=== PATIENT | male | born 1960 | race Hispanic/Latino ===

== ENCOUNTER → 2022-11-21 | Day surgery (SDC) | payer MEDICARE ==
[2022-11-18 10:33] LABS: BASOPHILS # (AUTO) 0.1 (0.0-0.1); BASOPHILS % 0.6 % (0.0-1.0); EOSINOPHILS # (AUTO) 0.3 (0.0-0.4); EOSINOPHILS % 3.9 % (0.0-6.0); HEMATOCRIT 41.9 % (38.2-49.6); HEMOGLOBIN 14.2 g/dL (14.0-18.0); LYMPHOCYTES # (AUTO) 1.9 (1.0-3.2); MEAN CORPUSCULAR HEMOGLOBIN 28.7 pg (28-32); MEAN CORPUSCULAR HGB CONC 33.9 g/dL (31-35); MEAN CORPUSCULAR VOLUME 84.6 fL (81-99); MONOCYTES # (AUTO) 0.6 (0.2-0.8); MONOCYTES % 7.3 % (4.4-11.3); NEUTROPHILS # (AUTO) 5.5 (2.1-6.9); NEUTROPHILS % 65.1 % (38.7-80.0); PLATELET COUNT 304 x10e3/uL (140-360); RED BLOOD COUNT 4.95 x10e6/uL (4.3-5.7)
[~2022-11-21] MED LIST: ATENOLOL50 MG PO; CLONAZEPAM1 MG PO; CRESTOR10 MG PO; DIVALPROEX SOD500 MG PO; FENTANYL CITRATE/PF 100MCG/2 ML INJ ONE; FEROSUL325 MG PO; FLOMAX0.4 MG PO; LACTATED RINGER'S 1,000 ML ONE; LEVETIRACETAM500 MG PO; LEVOTHYROXINE50 MCG PO; LIDOCAINE HCL 2% LOCAL INJ 5 ML SDV VIAL INJ ONE; LISINOPRIL10 MG PO; METFORMIN HCL500 MG PO; METOCLOPRAMIDE HCL 10 MG/2ML VIAL ONE; NIFEDIPINE10 MG PO; OMEPRAZOLE40 MG PO; POTASSIUM99 M1 PO; PROPOFOL IV EMULSION 10 MG/ML 50 ML VIAL IV ONE; VENLAFAXINE HCL75 MG PO; VITAMIN C1000 MG PO
[2022-11-21 12:58] VITALS: BP 132/84
== END | disposition home or self-care (01) ==
LOC: OR 08:22
PROVIDERS: ATTEND Internal Medicine Gastroenterology
DX: D64.89 Other specified anemias (principal); Z86.010 Personal history of colon polyps; K29.50 Unspecified chronic gastritis without bleeding; K20.90 Esophagitis, unspecified without bleeding; K59.00 Constipation, unspecified; K59.09 Other constipation; K64.8 Other hemorrhoids; J38.7 Other diseases of larynx; Z71.3 Dietary counseling and surveillance; E11.9 Type 2 diabetes mellitus without complications; I25.2 Old myocardial infarction; I10 Essential (primary) hypertension; Z71.89 Other specified counseling; E03.9 Hypothyroidism, unspecified; H40.9 Unspecified glaucoma; Z01.810 Encounter for preprocedural cardiovascular examination; Z01.812 Encounter for preprocedural laboratory examination; Z79.84 Long term (current) use of oral hypoglycemic drugs; Z79.899 Other long term (current) drug therapy; Z68.37 Body mass index [BMI] 37.0-37.9, adult
CPT/HCPCS: 36415 ×2; 43239; 45378; 82948; 85025; 93005; C9113; J2001; J2704; J2765; J3010; J7121